=== PATIENT | female | born 1960 | race Caucasian/White ===

== ENCOUNTER → 2016-06-01 | Outpatient (CLI) | payer OTHER | LOC: BMCIMAGING 07:52 | DX: Z12.31 Encounter for screening mammogram for malignant neoplasm of breast (principal); Z85.3 Personal history of malignant neoplasm of breast; Z92.3 Personal history of irradiation | CPT/HCPCS: G0202 ==

== ENCOUNTER 2017-02-21 16:40 | Emergency (ER) | payer OTHER ==
[2017-02-21 16:55] VITALS: BP 155/103; PULSE 93; RESP 18; TEMP 98.8; O2SAT 96
--- NOTE | 2017-02-21 17:13 | EDPHY ---
H & P Time Seen by Provider: 02/21/17 16:54 HPI/ROS: CHIEF COMPLAINT: "I have lots wrong" HISTORY OF PRESENT ILLNESS: The patient is a 57-year-old female who presents to the emergency department with multiple complaints. Patient states she flew to [place] on Monday. On she developed multiple episodes of nonbloody vomiting and diarrhea. Her vomiting ceased but her diarrhea continued through Monday. She states she has also had a sore throat. Is worsening. It is bilateral. It is worse with swallowing. She states that she has developed mild voice hoarseness. No difficulty breathing. No neck stiffness. Patient also has had "tinges" of abdominal pain. They are primarily on the right lateral side/right flank. She has no pain currently. She has had no dysuria or frequency. No hematuria. REVIEW OF SYSTEMS: My complete review of systems is negative except as mentioned in the HPI. Past Medical/Surgical History: Includes migraine, hypothyroidism, breast cancer Past surgical history: Includes orthopedic surgery, lumpectomy, total abdominal hysterectomy Social: The patient does not smoke Smoking Status: Former smoker Physical Exam: Vitals noted 37.1. Mildly hypertensive. GENERAL: Well-appearing, in no acute distress, alert. HEENT: Eyes normal to inspection, no signs of dehydration. Mild pharyngeal erythema. This is diffuse. Uvula is midline. There is no asymmetry or signs of abscess. No lesions or discharge. NECK: No thyromegaly, no lymphadenopathy, supple. No stridor. No meningismus RESPIRATORY: Clear to auscultation bilaterally, no rales, rhonchi or wheezing. Normal CVS: Regular rate and rhythm, no rubs, murmurs, or gallops. ABDOMEN: Soft, nontender, nondistended, no organomegaly. Benign BACK: Normal to inspection, no CVA tenderness. SKIN: Normal color, no rash, warm, dry. No pallor. EXTREMITIES: No pedal edema, no calf tenderness, no Homans sign or cords, no joint swelling. NEURO/PSYCH: Alert and oriented , normal mood and affect, normal motor sensory exam. No obvious cranial nerve deficit. Constitutional: Initial Vital Signs Temperature (C) 37.1 C 02/21/17 16:52 Heart Rate 93 02/21/17 16:52 Respiratory Rate 18 02/21/17 16:52 Blood Pressure 155/103 H 02/21/17 16:52 O2 Sat (%) 96 02/21/17 16:52 O2 Delivery Mode Room Air Allergies/Adverse Reactions: aspirin [Aspirin] Allergy (Severe, Verified 02/21/17 16:52) Rash Penicillins Allergy (Severe, Verified 02/21/17 16:52) Rash shellfish derived Allergy (Severe, Verified 02/21/17 16:52) Rash venom-honey bee [bee venom (honey bee)] Allergy (Severe, Verified 02/21/17 16:52 ) Rash latex [Latex] Allergy (Intermediate, Verified 02/21/17 16:52) Rash adhesive Allergy (Verified 02/21/17 16:52) Home Medications: Medication Instructions Recorded PROPRANOLOL HCL 40 mg PO DAILY06 10/19/09 Synthroid 137 mcg HS 10/19/09 Brisdelle 7.5 mg DAILY06 06/19/15 Digestive Enzyme HS 06/19/15 Dim Plus BID 06/19/15 Zomig 5 mg PRN PRN 06/19/15 AZITHROMYCIN [Z-PACK] 250 mg PO DAILY #1 packet 02/21/17 Medical Decision Making ED Course/Re-evaluation: In the emergency department I discussed possible etiologies with the patient. I answered all her questions. At this time the patient has clear breath sounds with normal oxygen saturation. Her abdomen is benign. It was nontender on exam she has no current abdominal pain. I do not feel she needs further laboratory studies or imaging. The patient will be given azithromycin to cover for possible strep pharyngitis. Patient has an allergy to penicillin. Patient was given warnings prior to leaving. She will return with worsening symptoms. Differential Diagnosis: My differential includes but is not limited to pharyngitis, retropharyngeal abscess, peritonsillar abscess, dehydration, meningitis, encephalitis, pneumonia , appendicitis, kidney stone, cholecystitis, viral syndrome Departure - Departure Disposition: Home, Routine, Self-Care Clinical Impression: Sore throat, Vomiting, resolved Diarrhea Qualifiers: Diarrhea type: unspecified type Qualified Code(s): R19.7 - Diarrhea, unspecified Condition: Good Instructions: Acute Diarrhea (ED), Pharyngitis (ED) Additional Instructions: Return with increasing abdominal pain, more focused abdominal pain, recurrent vomiting, persistent fever, neck stiffness, visual change, difficulty swallowing , shortness of breath or any other concerns. Referrals: Cody Douglas MD [Primary Care Provider] - 3-4 days, if not improved Prescriptions: AZITHROMYCIN [Z-PACK] 250 mg PO DAILY #1 packet
== END 2017-02-21 17:26 | disposition home or self-care (01) ==
LOC: CED 16:40
DX: R19.7 Diarrhea, unspecified (principal); R11.10 Vomiting, unspecified; J02.9 Acute pharyngitis, unspecified; Z85.3 Personal history of malignant neoplasm of breast; Z87.891 Personal history of nicotine dependence; Z91.040 Latex allergy status

== ENCOUNTER → 2017-04-11 | Outpatient (CLI) | payer OTHER | LOC: FIMAGING 08:18 | PROVIDERS: ATTEND Orthopaedic Surgery Hand Surgery | DX: R05 Cough (principal); M75.111 Incomplete rotator cuff tear or rupture of right shoulder, not specified as traumatic ==

== ENCOUNTER 2017-04-20 05:47 | Day surgery (SDC) | payer OTHER ==
[2017-04-20] MEDS ORDERED: LIDOCAINE 1% 2 ML INJ ID PRN (05:56)
[2017-04-20] MEDS ORDERED: LR 1,000 ML IV ONE (05:56)
[2017-04-20 06:24] VITALS: PULSE 82
[2017-04-20] MEDS ORDERED: LIDOCAINE 1% 300 MG/30 ML SDV ONE (06:38)
[2017-04-20] MEDS ORDERED: EPINEPHrine 30 MG/30 ML MDV (0.1 MG/0.1 ML) ONE (06:38)
[2017-04-20] MEDS ORDERED: BUPIVACAINE 0.5% 30 ML SDV ONE (06:38)
[2017-04-20] MEDS ORDERED: MIDAZOLAM 2 MG/2 ML VIAL IVP ONE (06:54)
[2017-04-20] MEDS ORDERED: CLINDAMYCIN 900 MG/DEXTROSE 50 ML IV ONE (06:55)
--- NOTE | 2017-04-20 06:56 | PDANEPAE ---
ANE History of Present Illness left shoulder scope ANE Past Medical History - Cardiovascular History Hx Hypertension: No Hx Arrhythmias: No Hx Chest Pain: No Hx Coronary Artery / Peripheral Vascular Disease: No Hx CHF / Valvular Disease: No Hx Palpitations: No - Pulmonary History Hx COPD: No Hx Asthma/Reactive Airway Disease: Yes Hx Recent Upper Respiratory Infection: No Hx Oxygen in Use at Home: No Hx Sleep Apnea: No Sleep Apnea Screening Result - Last Documented: Negative Pulmonary History Comment: Only smoked in college very rarely 1984;. Exercise induced Asthma, less as an adult. - Neurologic History Hx Cerebrovascular Accident: No Hx Seizures: No Hx Dementia: No - Endocrine History Hx Diabetes: No Obesity: no Endocrine History Comment: hypothyroid-med - Renal History Hx Renal Disorders: No - Liver History Hx Hepatic Disorders: No - Neurological & Psychiatric Hx Hx Neurological and Psychiatric Disorders: No - Cancer History Hx Cancer: Yes Cancer History Comment: 06/04/13 Diagnosed with Left Breast Stage Cancer - "Mucinous" - Congenital Disorder History Hx Congenital Disorders: No - GI History GERD: no Hx Gastrointestinal Disorders: Yes Gastrointestinal History Comment: GERD for years - Other Health History Other Health History: LT ARM LYMPHODEMA USES COMPRESSION SLEEVE. RT KNEE PAIN. Skin sensitive with tapes/adhesives - Chronic Pain History Chronic Pain: Yes (RT KNEE) - Surgical History Prior Surgeries: LT BREAST LUMPECTOMY WITH LYMPH NODE REMVL. 06/2013. Left Hand 2012;. Total Abd Hysterectomy 2003. Left Wrist:cyst & bone spur 1999. Left Knee:ACL;Hamstring [id number] & Right Ankle 2000. Laporoscopy Endometriosis 1989 x 2. Endoscopy EGD ~ 2008 ANE Review of Systems Review of systems is: negative Review of Systems: - Exercise capacity METS (RN): 4 METS ANE Patient History - Allergies Allergies/Adverse Reactions: aspirin [Aspirin] Allergy (Severe, Verified 02/21/17 16:52) Rash Penicillins Allergy (Severe, Verified 02/21/17 16:52) Rash shellfish derived Allergy (Severe, Verified 02/21/17 16:52) Rash venom-honey bee [bee venom (honey bee)] Allergy (Severe, Verified 02/21/17 16:52 ) Rash latex [Latex] Allergy (Intermediate, Verified 02/21/17 16:52) Rash adhesive Allergy (Verified 02/21/17 16:52) - Home Medications Home medications: home medication list seen and reviewed Home Medications: PROPRANOLOL HCL 10/19/09 [Last Taken 04/20/17 04:30] Synthroid 10/19/09 [Last Taken 04/20/17 04:30] Brisdelle 06/19/15 [Last Taken 04/19/17] Dim Plus 06/19/15 [Last Taken 04/19/17] Zomig 06/19/15 [Last Taken 04/13/17] - NPO status NPO Since - Liquids (Date): 04/19/17 NPO Since - Liquids (Time): 20:30 NPO Since - Solids (Date): 04/19/17 NPO Since - Solids (Time): 19:00 - Anes Hx Anes Hx: post operative nausea - Smoking Hx Smoking Status: Former smoker - Family Anes Hx Family Hx Anesthesia Complications: none ANE Labs/Vital Signs - Vital Signs Blood Pressure: 141/88 Heart Rate: 82 Respiratory Rate: 16 O2 Sat (%): 96 Height: 167.64 cm Weight: 85.729 kg ANE Physical Exam - Airway Neck exam: FROM Mallampati Score: Class 2 Mouth exam: normal dental/mouth exam - Pulmonary Pulmonary: no respiratory distress - Cardiovascular Cardiovascular: regular rate and rhythym - ASA Status ASA Status: II ANE Anesthesia Plan Anesthesia Plan: GA w LMA Regional Anesthesia: single shot NB, interscalene BP NB
--- NOTE | 2017-04-20 06:58 | PDHPUP ---
History & Physical Update H&P update statement: This history and physical update is based on an assessment of the patient which was completed after admission or registration (within 24 hours), but prior to the surgery/procedure. RRR CTAB
[2017-04-20] MEDS ORDERED: SCOPOLAMINE HYDROBROMIDE 1 MG/3 DAYS PATCH TD SCH (07:00)
[2017-04-20] MEDS ORDERED: fentaNYL 100 MCG/2 ML INJ ONE ×2 (07:06→07:47)
[2017-04-20] MEDS ORDERED: PROPOFOL 200 MG/20 ML VIAL ONE ×2 (07:06→07:15)
[2017-04-20] MEDS ORDERED: ONDANSETRON 4 MG/2 ML VIAL ONE (07:09)
[2017-04-20] MEDS ORDERED: KETOROLAC 30 MG/1 ML SDV ONE (07:09)
[2017-04-20] MEDS ORDERED: LIDOCAINE 2% 5 ML SDV ONE (07:09)
[2017-04-20] MEDS ORDERED: DEXAMETHASONE 4 MG/ML VIAL ONE (07:09)
[2017-04-20] MEDS ORDERED: LIDO/EPI 1% **for epidural** 30 ML SDV ONE (07:14)
[2017-04-20] MEDS ORDERED: LR 500 ML IV PRN (08:28)
[2017-04-20] MEDS ORDERED: ACETAMINOPHEN 500 MG TAB PO PRN (08:28)
[2017-04-20] MEDS ORDERED: fentaNYL 100 MCG/2 ML INJ IVP PRN (08:28)
[2017-04-20] MEDS ORDERED: PROMETHAZINE HCL 25 MG/ML INJ IVP PRN (08:28)
[2017-04-20] MEDS ORDERED: HYDROCODONE/APAP 5/325 TAB PO PRN (08:28)
[2017-04-20] MEDS ORDERED: NALOXONE HCL 0.4 MG/ML INJ IVP PRN (08:28)
[2017-04-20] MEDS ORDERED: ONDANSETRON 4 MG/2 ML VIAL IVP PRN (08:28)
[2017-04-20] MEDS ORDERED: ALBUTEROL 3 ML DEYVIAL IH PRN (08:28)
[2017-04-20] MEDS ORDERED: HYDROmorphONE/DILAUDID 1 MG/ML INJ IVP PRN (08:28)
[2017-04-20] MEDS ORDERED: OXYCODONE/APAP 5/325 TAB PO PRN (08:28)
--- NOTE | 2017-04-20 09:08 | POSTOPPROG ---
Post Op Note Date of Operation: 04/20/17 Surgeon: Fili Manning Audiologist: Sofi Cabrera PA-C Anesthesia: GET(General Endotracheal) Pre-op Diagnosis: right shoulder impingement, biceps tendinitis Post-op Diagnosis: right shoulder impingement, biceps tendinitis Procedure: Right shoulder arthroscopy with labral debridement, biceps tenotomy, SAD Inf/Abcess present in the surg proc area at time of surgery?: No Depth: Superfical (Skin SQ) EBL: Minimal
--- NOTE | 2017-04-20 09:10 | POSTANESTH ---
Post Anesthetic Evaluation Cardiovascular Status: Normal, Stable Respiratory Status: Normal, Stable Level of Consciousness/Mental Status: Alert and Oriented, Mildly Sleepy, Arousable Pain Control: Adequate, Prn Tx Ordered Nausea/Vomiting Control: Adequate, Prn Tx Ordered Complications Possibly Related to Anesthesia: None Noted
[2017-04-20 10:27] VITALS: TEMP 97.3
[2017-04-20 10:53] VITALS: BP 144/92; RESP 17; O2SAT 93
--- NOTE | 2017-04-21 01:08 | GOP ---
[f rep st] OPERATIVE REPORT PATIENT: JOSÉ ZAPIEN DATE OF SERVICE: 04/20/17 PATIENT DATE OF : 1960 SURGEON: Fili Manning M.D. DIGITAL ART DIRECTOR: Sofi Cabrera PA-C Mrs. Howard assistance was medically necessary for patient positioning and the retraction of vital structures. ANESTHESIA: General / regional anesthesia by surgeon PRE-OPERATIVE DIAGNOSES: Right shoulder subacromial impingement (ICD-10 code M75.50 bursitis of shoulder ) Right shoulder acromioclavicular joint arthritis (ICD-10 code M13.119 acromioclavicular joint arthritis) Right shoulder SLAP tear (ICD-10 code S43.439S Superior glenoid labrum lesion of shoulder) Right shoulder biceps tenosynovitis (ICD-10 code M75.20 bicipital tendinitis of shoulder) Right shoulder partial thickness rotator cuff tear (ICD-10 code M75.110 incomplete rotator cuff tear) POST-OPERATIVE DIAGNOSES: Right shoulder subacromial impingement (ICD-10 code M75.50 bursitis of shoulder ) Right shoulder acromioclavicular joint arthritis (ICD-10 code M13.119 acromioclavicular joint arthritis) Right shoulder SLAP tear (ICD-10 code S43.439S Superior glenoid labrum lesion of shoulder) Right shoulder biceps tenosynovitis (ICD-10 code M75.20 bicipital tendinitis of shoulder) Right shoulder partial thickness rotator cuff tear (ICD-10 code M75.110 incomplete rotator cuff tear) OPERATIVE PROCEDURES: CPT code 32343 Right shoulder arthroscopic subacromial decompression CPT code 73368 -- Right shoulder arthroscopic debridement, extensive CPT code 60165 Right shoulder arthroscopic distal clavicle excision CPT code 42424 Right shoulder long head of biceps tenotomy EBL: 2cc COMPLICATIONS: None IMPLANTS: None BRIEF CLINICAL NOTE: This is a very pleasant 57 year old female with a significant history for right shoulder subacromial impingement, AC joint arthritis, degenerative labral tears, long head of biceps tendinitis, and a partial thickness rotator cuff tear. As such, I have discussed the risks, benefits, alternatives, and complications associated with both non-operative ( specifically, observation, PT, NSAIDs, injection) and operative (specifically, right shoulder arthroscopy with subacromial decompression, distal clavicle excision, labral debridement, long head of biceps tenotomy and rotator cuff debridement and/or repair) forms of treatment. The patient fully understands the risks, benefits, alternatives, and complications associated with both forms of treatment and wishes to proceed with operative intervention as outlined above. The patient has signed the informed consent form for surgery. OPERATIVE NOTE: On the day of surgery, all of the patients questions were answered. The patient was then transferred from the pre-operative area into the operating room and a formal, Time-Out procedure was performed. The patient was identified by name, medical record number, social security number, and date of . In addition, the patients right upper extremity was identified as the correct portion of the patients body for surgery with the patients right shoulder being identified as the correct portion of that extremity for surgery. The anesthesia team administered pre-operative antibiotics for prophylaxis. The patient was then transferred to the operating room table and placed in the beach chair position while padding all bony prominences. The extremity was then prepped and draped in the normal sterile fashion. A sterile marking pen was then utilized to evangelista out standard posterior, lateral , and anterior arthroscopic portal incisions. Next, an 18-gauge spinal needle was utilized to localize the glenohumeral joint and the joint was insufflated with 60cc of a 50:50 mixture of 1% lidocaine with 1:200,000 components of epinephrine and normal saline. Following this, an 11-blade was utilized to make the posterior portal incision. The blunt obturator and arthroscopic cannula was then advance through the posterior portal incision into the glenohumeral joint. The arthroscope was then inserted and the shoulder was brought into external rotation. Next, an 18-gauge spinal needle was utilized to create the anterior portal with an outside-in technique. A medium-sized Piktochartrex corckscrew cannula was then inserted through the anterior portal incision. At this point, a diagnostic arthroscopy was performed in the glenohumeral space. The following structures were identified and examined with the following findings: Glenohumeral diagnostic arthroscopy Glenoid: mild degenerative changes Humeral head: mild degenerative changes Glenoid labrum Anterior labrum: degenerative fraying Superior labrum: degenerative fraying Posterior labrum: intact Inferior labrum: intact Biceps tendon: tendinitis and partial thickness tearing Glenohumeral ligaments: SGHL: intact MGHL: intact AIGHL: intact PIGHL: intact Undersurface of rotator cuff: Subscapularis: intact Supraspinatus: minimal undersurface tearing Infraspinatus: intact Following this, a 4.0mm aggressive cutter was then inserted through the anterior portal and an extensive debridement was performed within the glenohumeral joint. The cautery wand was inserted through the anterior portal and the long head of the biceps tendon was released off of the supraglenoid tubercle (long head of biceps tenotomy). Following this, the arthroscope was then removed from the glenohumeral joint and posterior cannula was then re-directed into the subacromial space. The arthroscope was then re-inserted into the posterior cannula. Next, an 18-gauge spinal needle was used to create a straight lateral portal with an outside-in technique. A large Arthrex corkscrew cannula was then through the lateral portal incision. The 4.0mm aggressive cutter and the cautery wand were utilized to excise the subacromial-subdeltoid bursa. At this point, a diagnostic arthroscopy was performed in the subacromial space. The following structures were identified and examined with the following findings: Subacromial space diagnostic arthroscopy Subacromial / subdeltoid bursa: hypertrophic and inflamed Acromion: undersurface spurring Coracoacromial ligament: intact Acromioclavicular joint: undersurface spurring Bursal surface of rotator cuff muscles: Supraspinatus: intact Infraspinatus: intact Following this, the 4.0mm barrel marco antonio was utilized to perform both an acromioplasty as well as an arthroscopic distal clavicle excision. This provided for an excellent subacromial decompression. Meticulous hemostasis was then obtained in the subacromial space with the cautery wand. The arthroscope and all instruments were then removed from the joint. All wounds were copiously irrigated with sterile normal saline. The subcutaneous plane was re-approximated with 3-0 vicryl sutures and the skin was re-approximated with 4-0 moncryl. Next, a mixture of 1% lidocaine and 0.5% Marcaine was then utilized to provide local anesthesia at the portal sites. The skin was then cleaned with sterile normal saline and dried. Dermabond was applied to all of the incisions followed by a Xeroform gauze dressing, a dry sterile dressing, and an occlusive Tegaderm dressing. The arm was then placed into a sling and swathe. The patient was reversed from anesthesia and transferred from the operating room table onto the post-operative gurney and transferred from the operating room to the PACU in stable condition. POST-OPERATIVE PLAN: The patient will remain in the current dressing and sling for the next week. The patient will follow-up in one week for a wound check and initiation of PT and a HEP for shoulder, elbow, and forearm ROM. /[id number]/MODL MTDD
[2017-04-21] MEDS ORDERED: PATCH REMOVAL 1 EA PATCH TD ONE (06:54)
== END 2017-04-20 12:30 | disposition home or self-care (01) ==
LOC: FSGY 05:47
PROVIDERS: ATTEND Orthopaedic Surgery Hand Surgery
DX: M75.41 Impingement syndrome of right shoulder (principal); M75.51 Bursitis of right shoulder; M75.111 Incomplete rotator cuff tear or rupture of right shoulder, not specified as traumatic; M75.21 Bicipital tendinitis, right shoulder; M17.10 Unilateral primary osteoarthritis, unspecified knee
CPT/HCPCS: J0171; J1100; J1885; J2250; J2405; J2704; J3010

== ENCOUNTER → 2017-06-07 | Outpatient (CLI) | payer OTHER | LOC: FIMAGING 08:01 | PROVIDERS: ATTEND Internal Medicine Hematology & Oncology | DX: Z12.31 Encounter for screening mammogram for malignant neoplasm of breast (principal); Z85.3 Personal history of malignant neoplasm of breast ==

== ENCOUNTER → 2018-06-08 | Outpatient (CLI) | payer OTHER | LOC: FIMAGING 07:32 | PROVIDERS: ATTEND Internal Medicine Hematology & Oncology | DX: Z12.31 Encounter for screening mammogram for malignant neoplasm of breast (principal); Z85.3 Personal history of malignant neoplasm of breast ==